=== PATIENT | female | born 1965 | race Two or more races ===

== ENCOUNTER 2019-07-03 13:22 | Day surgery (SDC) | payer OTHER ==
[~2019-07-03] VITALS: Ht 144.8 cm; Wt 112.4 kg
[~2019-07-03 13:22] MED LIST: ATEN-51 PO; DIABETES MED; DIABETES MED PO; HIGH CHOLESTEROL PO; HTN MED PO; [UNRECOGNIZED DRUG - OTHER] PO
[2019-07-03 14:31] VITALS: Ht 144.8 cm; Wt 112.4 kg
--- NOTE | 2019-07-03 16:08 | PREAC ---
Date/Time of Note Date/Time of Note DATE: 07/03/19 TIME: 16:07 Anesthesia Eval and Record Evaluation Time Pre-Procedure Interview DATE: 07/03/19 TIME: 16:07 Age 54 Sex female NPO: 8 hrs Preoperative diagnosis SCREENING Planned procedure COLONOSCOPY Past Medical History Past Medical History: Includes Cardio: HTN, Dyslipidemia Endo: Diabetes, Hypothyroid Surgery & Anesthesia Issues No known issue Meds Anticoagulation: No Beta Taye within 24 hr: No Reason Beta Taye not given: Pt. not on B-Taye Reported Medications [Hypothyroid Med] No Conflict Check, PO DAILY 07/03/19 [Diabetes Med] No Conflict Check, PO DAILY 07/03/19 [High Cholesterol] No Conflict Check, PO DAILY 07/03/19 [Htn Med] No Conflict Check, PO DAILY 07/03/19 Discontinued Reported Medications [Diabetes Med] No Conflict Check 07/03/19 Atenolol* (Atenolol*) 25 Mg Tablet, 25 MG PO DAILY, #30 TAB 05/11/16 Meds reviewed: Yes Allergies Coded Allergies: No Known Drug Allergies (Unverified Allergy, Unknown, 07/03/19) Allergies Reviewed: Yes Labs/Studies Labs Reviewed: Reviewed by anesthesiologist test: Negative Pre-procedure Exam Airway: Adequate mouth opening, Adequate thyromental dist Mallampati: Mallampati I Teeth: Normal Lung: Normal Heart: Normal ASA Physical Status ASA physical status: 2 Emergency: None Planned Anesthetic General/MAC: MAC Planned Pain Management Parenteral pain med Pre-operative Attestations Prior to commencing anesthesia and surgery, the patient was re-evaluated, there was verification of: *The patient's identity *The results of appropriate recent lab work and preoperative vital signs *The above evaluation not changing prior to induction *Anesthetic plan, risk benefits, alternative and complications discussed with patient/family; questions answered; patient/family understands, accepts and wishes to proceed. INDIA SIMON Jul 03, 2019 16:08
[2019-07-03 16:16] VITALS: BP 154/79; PULSE 72; RESP 16
[2019-07-03] MEDS ORDERED: LIDOCAINE 2% (SDV) 5 ML INJ ONE (16:32)
[2019-07-03] MEDS ORDERED: PROPOFOL 40 ML ONE (16:32)
--- NOTE | 2019-07-03 17:10 | PAC ---
Date/Time of Note Date/Time of Note DATE: 07/03/19 TIME: 17:09 Post-Anesthesia Notes Post-Anesthesia Note Last documented vital signs Vital Signs Date Temp Pulse Resp B/P (MAP) Pulse Ox O2 O2 Flow FiO2 Time Delivery Rate 07/03/19 97.6 72 16 154/79 98 Room Air 1709 (104) Activity: WNL Respiratory function: WNL Cardiovascular function: WNL Mental status: Baseline Pain reasonably controlled: Yes Hydration appropriate: Yes Nausea/Vomiting absent: Yes INDIA SIMON Jul 03, 2019 17:10
[2019-07-03 17:27] VITALS: BP 148/84; RESP 16
[2019-07-03] MEDS ORDERED: ONDANSETRON 4 MG INJ IV PRN (17:30)
[2019-07-03] MEDS ORDERED: FENTAnyl 50 MCG/ML VIAL IV PRN (17:30)
== END 2019-07-03 18:39 | disposition home or self-care (01) ==
LOC: GIL 13:22
PROVIDERS: ATTEND Internal Medicine Gastroenterology
DX: Z12.11 Encounter for screening for malignant neoplasm of colon (principal); K64.8 Other hemorrhoids; E11.9 Type 2 diabetes mellitus without complications; I10 Essential (primary) hypertension; E78.00 Pure hypercholesterolemia, unspecified
CPT/HCPCS: 45378; 82962; 84703; Z7610